=== PATIENT | female | born 1985 | race Caucasian/White ===

== ENCOUNTER 2016-08-19 12:49 | Inpatient (IN) | payer BC ==
[~2016-08-19] VITALS: Ht 170.2 cm; Wt 78.5 kg
[~2016-08-19 12:49] MED LIST: LABE100 PO; OXYC1SOL5 PO; PREN0.01 PO
[2016-09-10] MEDS: LACTATED RINGER'S 1000 ML INJ 1,000 ML IV SCH ×2 (13:04→22:32)
[2016-09-10 15:15] VITALS: RESP 18; TEMP 98
[2016-09-10 16:02] LABS: AUTOMATED NEUTROPHIL # 6.5 TH/MM3 (1.8-7.7); BASOPHIL % 0.2 % (0.0-2.0); EOSINOPHIL # 0.2 TH/MM3 (0-0.4); EOSINOPHIL % 1.9 % (0.0-4.0); HEMO FLAGS DIFF FINAL; LYMPH % 20.2 % (9.0-44.0); LYMPHOCYTE # 1.9 TH/MM3 (1.0-4.8); MEAN CELL VOLUME 90.3 FL (80.0-100.0); MEAN CORPUSCULAR HGB CONC 33.3 % (32.0-36.0); MONO % 6.9 % (0.0-8.0); NEUT % 70.8 % (16.0-70.0); PLATELET COUNT 107 TH/MM3 (150-450); RED BLOOD COUNT 4.65 MIL/MM3 (4.00-5.30); RED CELL DISTRIBUTION WIDTH 13.3 % (11.6-17.2); WHITE BLOOD COUNT 9.2 TH/MM3 (4.0-11.0)
[2016-09-10 16:15] VITALS: RESP 18
--- NOTE | 2016-09-10 16:56 | MH ---
cc: EVELIN SARMIENTO DATE OF ADMISSION 09/10/2016 DATE OF 83 ADMISSION DIAGNOSIS 1. at 38-39 weeks with decreased movement and oligohydramnios. 2. Mild PIH 3. Previous HISTORY OF PRESENT ILLNESS A 30-year-old white female para 1-0-1-1, LMP of 12/14/2015, EDC of 09/19/2016. She reported to the office today with decrease of movement, BPP was eight with NST nonreactive, and fluid just barely at six. Blood pressure is mildly elevated. She is now admitted for delivery. PAST MEDICAL HISTORY/PAST SURGICAL HISTORY for distress in 2014. 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 SOCIAL HISTORY Homemaker, . Alcohol, tobacco and drugs are none. PHYSICAL EXAMINATION GENERAL: A well-nourished well-developed white female. VITAL SIGNS: Vital signs stable. HEENT: Exam is normal. CHEST: Clear HEART: Regular rate. BREASTS: The breasts are symmetrical. ABDOMEN: Gravid. EFW is 3200 grams. Cervix is closed. Placenta is anterior. ASSESSMENT As above. PLAN She is now admitted for repeat section. The risks, benefits and complications explained and accepted. MD PARIS Hsu/ /4:00 PM /4:44 PM
[2016-09-10] MEDS ORDERED: LACTATED RINGER'S 1000 ML IV ONE (17:15)
[2016-09-10] MEDS ORDERED: LACTATED RINGER'S 1000 ML IV SCH (17:15)
[2016-09-10] MEDS ORDERED: CITRIC ACID-SODIUM CITRATE LIQ 30 ML UDC PO SCH (17:15)
[2016-09-10] MEDS ORDERED: ceFAZolin 1,000 MG/NS 100 ML IV SCH ×2 (17:15)
[2016-09-10 17:28] VITALS: BP 133/88; PULSE 75; RESP 18; TEMP 98
[2016-09-10 17:36] LABS: TOTAL BILIRUBIN ADULT 0.6 MG/DL (0.2-1.0)
[2016-09-10 17:38] LABS: INDIRECT BILIRUBIN 0.5 MG/DL (0.0-0.8)
[2016-09-10 17:56] LABS: BACTERIA, URINE FEW /hpf; BLOOD, URINE NEG (NEG); COMMENT (UR) CULTURE INDICATED; CULTURE IF INDICATED CULTURE INDICATED; GLUCOSE,URINE NEG (NEG); KETONE, URINE NEG (NEG); NITRITE,URINE NEG (NEG); PH, URINE 6.5 (5.0-8.5); SQUAMOUS EPITHELIAL CELL URINE 8 /hpf (0-5); URINE COLOR LIGHT-YELLOW (YELLW/STRAW)
[2016-09-10] MEDS ORDERED: OXYTOCIN 30 UNITS-500ML PREMIX 500 ML IV PRN (18:15)
[2016-09-10] MEDS ORDERED: PREN29TA PO (18:27)
[2016-09-10] MEDS ORDERED: MORPHINE SULFATE PF 5 MG/10 ML VIAL ONE (19:26)
[2016-09-10] MEDS ORDERED: ONDANSETRON HCL 4 MG/2 ML VIAL ONE (19:27)
[2016-09-10] MEDS ORDERED: ACETAMINOPHEN 1000 MG/100 ML VIAL IV ONE (19:27)
[2016-09-10] MEDS ORDERED: OXYTOCIN 10 UNIT/ML AMP ONE (19:27)
[2016-09-10] MEDS ORDERED: ONDANSETRON HCL 4 MG/2 ML VIAL IVP PRN (19:45)
[2016-09-10] MEDS ORDERED: ZOLPIDEM TARTRATE 5 MG TAB PO PRN (19:45)
[2016-09-10] MEDS ORDERED: MEASLES, MUMPS, RUBELLA VACCINE 0.5 ML VIAL SQ ONE (19:45)
[2016-09-10] MEDS ORDERED: KETOROLAC TROMETHAMINE 60 MG/2 ML (IM) VIAL IM PRN (19:45)
[2016-09-10] MEDS ORDERED: KETOROLAC TROMETHAMINE 30 MG/ML (IVP) VIAL IV PUSH PRN (19:45)
[2016-09-10] MEDS ORDERED: DOCUSATE SODIUM 50 MG/SENNA 8.6 MG TAB PO PRN (19:45)
[2016-09-10] MEDS ORDERED: SIMETHICONE 80 MG CHEWABLE TAB PO PRN (19:45)
[2016-09-10] MEDS ORDERED: SODIUM CHLORIDE 0.9% FLUSH 5 ML FLUSH IV PRN (19:45)
[2016-09-10] MEDS ORDERED: OXYTOCIN 30 UNITS-500ML PREMIX 500 ML IV ONE (19:45)
[2016-09-10] MEDS ORDERED: oxyCODONE/ACETAMINOPHEN 5 MG/325 MG TAB PO PRN ×2 (19:45)
[2016-09-10] MEDS ORDERED: SODIUM CHLORIDE 0.9% FLUSH 5 ML FLUSH IV SCH (21:00)
[2016-09-11] MEDS: ACETAMINOPHEN 1000 MG/100 ML VIAL IV SCH ×2 (04:32→14:05)
[2016-09-11 06:09] LABS: AUTOMATED NEUTROPHIL # 6.1 TH/MM3 (1.8-7.7); BASOPHIL % 0.3 % (0.0-2.0); EOSINOPHIL # 0.1 TH/MM3 (0-0.4); EOSINOPHIL % 1.2 % (0.0-4.0); HEMATOCRIT 31.6 % (35.0-46.0); LYMPH % 15.8 % (9.0-44.0); LYMPHOCYTE # 1.2 TH/MM3 (1.0-4.8); MEAN CELL VOLUME 89.3 FL (80.0-100.0); MEAN CORPUSCULAR HEMOGLOBIN 31.3 PG (27.0-34.0); MEAN CORPUSCULAR HGB CONC 35.1 % (32.0-36.0); MONO % 4.4 % (0.0-8.0); NEUT % 78.3 % (16.0-70.0); PLATELET COUNT 83 TH/MM3 (150-450); RED BLOOD COUNT 3.54 MIL/MM3 (4.00-5.30); RED CELL DISTRIBUTION WIDTH 13.4 % (11.6-17.2); WHITE BLOOD COUNT 7.8 TH/MM3 (4.0-11.0)
[2016-09-11 06:11] LABS: HEMO FLAGS AUTO DIFF
[2016-09-11 06:34] LABS: BICARBONATE 25.9 MEQ/L (21.0-32.0)
[2016-09-11 06:58] LABS: SCAN/DIFF AUTO DIFF CONFIRMED
[2016-09-11] MEDS: IBUPROFEN 600 MG TAB PO PRN (21:15)
[2016-09-12] MEDS: IBUPROFEN 600 MG TAB PO PRN ×2 (05:14→09:18)
[2016-09-12 07:18] LABS: AUTOMATED NEUTROPHIL # 8.4 TH/MM3 (1.8-7.7); BASOPHIL % 0.1 % (0.0-2.0); EOSINOPHIL # 0.2 TH/MM3 (0-0.4); EOSINOPHIL % 2.1 % (0.0-4.0); HEMATOCRIT 34.6 % (35.0-46.0); LYMPH % 14.4 % (9.0-44.0); LYMPHOCYTE # 1.5 TH/MM3 (1.0-4.8); MEAN CELL VOLUME 91.3 FL (80.0-100.0); MEAN CORPUSCULAR HEMOGLOBIN 30.9 PG (27.0-34.0); MEAN CORPUSCULAR HGB CONC 33.8 % (32.0-36.0); MONO % 4.6 % (0.0-8.0); NEUT % 78.8 % (16.0-70.0); PLATELET COUNT 97 TH/MM3 (150-450); RED BLOOD COUNT 3.79 MIL/MM3 (4.00-5.30); RED CELL DISTRIBUTION WIDTH 13.6 % (11.6-17.2); WHITE BLOOD COUNT 10.6 TH/MM3 (4.0-11.0)
[2016-09-12 07:21] LABS: HEMO FLAGS AUTO DIFF
[2016-09-12 08:26] LABS: PLATELET ESTIMATE SMEAR LOW (NORMAL); PLATELET MORPHOLOGY NORMAL (NORMAL); SCAN/DIFF AUTO DIFF CONFIRMED
[2016-09-12 09:00] VITALS: BP 133/89; PULSE 81; RESP 16; TEMP 98
[2016-09-12] MEDS ORDERED: DIPHTH/TETANUS/ACEL PERTUSSIS (BOOSTER) 0.5 ML VIAL/PFS IM ONE (09:00)
[2016-09-12] MEDS ORDERED: OXYC1TAB63 PO (10:28)
--- NOTE | 2016-09-12 10:29 | HHI.DCPOC ---
Discharge Care Plan Report Symptoms to Your Doctor -Temperature above 100.5 degrees -Redness, of incision or excessive or foul smelling drainage -Unusual pain or calf pain -Increased vaginal bleeding -Painful or difficulty urinating -Feelings of extreme sadness or anxiety after 2 weeks Goals to Promote Your Health * To prevent worsening of your condition and complications * To maintain your health at the optimal level Directions to Meet Your Goals Take your medications as prescribed Follow your dietary instruction Follow activity as directed Ensure plenty of rest for recovery Drink fluids for hydration Keep your appointments as scheduled Take your immunizations and boosters as scheduled If your symptoms worsen call your PCP, if no PCP go to Urgent Care Center or Emergency Room Smoking is Dangerous to Your Health. Avoid second hand smoke Call the 24-hour crisis hotline for domestic abuse at Enoch Martinez MD Sep 12, 2016 10:29
--- NOTE | 2016-09-12 16:57 | MP ---
cc: EVELIN SARMIENTO DATE OF SURGERY: 09/12/2016. PREOPERATIVE DIAGNOSIS: 1. at 38 to 39 weeks. 2. Oligohydramnios. 3. Decreased movement. 4. Previous . POSTOPERATIVE DIAGNOSIS: 1. at 38 to 39 weeks. 2. Oligohydramnios. 3. Decreased movement. 4. Previous . 5. Delivered. OPERATIVE PROCEDURE PERFORMED: Repeat low transverse section. SURGEON: Evelin Sarmiento MD. BRAZER REPAIR AND SALVAGE: YOLIS Gonzalez. ANESTHESIA: Spinal. ESTIMATED BLOOD LOSS: About 600 cc. FLUIDS: 1.6 liters of crystalloid. DESCRIPTION OF THE PROCEDURE IN DETAIL / OBJECTIVE FINDINGS: Following the induction of adequate spinal anesthesia, the patient was prepped and draped supine on the operating table in the dorsal lithotomy position in the usual sterile fashion with the bladder being drained via Jacob catheterization. The abdomen was opened through a Pfannenstiel's incision using a knife to cut down through skin to the fascia. The fascia was opened transversely and stripped the muscles. The rectus muscle was split in the midline and the peritoneum opened sharply without incident. The bladder flap was taken down sharply and retracted inferiorly with a Diego blade. The lower uterine segment was incised transversely with a knife and extended by blunt dissection. There was clear fluid. The baby was in the OP position and was gently rotated to apply the vacuum to the occiput and lift the baby through the abdominal wound. The mouth was suctioned, the cord clamped and cut and the baby passed to the awaiting team, a viable vigorous female with Apgars 9 and 9 and weight 6 pounds, 8 ounces. Cord blood was taken for typing and donation. The uterine cavity was cleaned with laps. The uterus was exteriorized and closed in two layers using running suture, first with a running locking stitch of Vicryl and the second with a running imbricating stitch of Vicryl. Area of bleeding along the suture line was controlled with sutures of 2-0 chromic. Posterior inspection was normal. Sutures were normal. The uterus was replaced in the abdominal cavity. Inspection was performed and no bleeding was evident. The bladder flap was closed with a running stitch of 3-0 Vicryl. All laps were removed. Counts were correct. The anterior peritoneum was closed with a running stitch of 2-0 Vicryl, the fascia with a running locking stitch of #0 Vicryl corner to midline and tied and the subcutaneous with running 3-0 Vicryl and the skin with running subcuticular 3-0 Monocryl. Dermabond was applied. All counts were correct. The patient was awakened and taken to the recovery room in good condition. MD PARIS Hsu/NITIN /8:36 PM /4:50 PM
--- NOTE | 2016-09-16 07:02 | MD ---
cc: EVELIN SARMIENTO M.D. ADMISSION DATE: 09/10/2016 DISCHARGE DATE: 09/12/2016 ADMISSION DIAGNOSIS 1. at 38-39 weeks. 2. Oligohydramnios 3. Decreased movement. 4. Mild PIH 5. Previous . DISCHARGE DIAGNOSIS 1. at 38-39 weeks. 2. Oligohydramnios 3. Decreased movement. 4. Mild PIH 5. Previous . 6. Delivered HISTORY OF PRESENT ILLNESS The patient is a 30-year-old white female para 1-0-1-1, LMP of 12/14/2015, EDC of 09/19/2016. She had presented to the office on the day of admission with decreased movement. Biophysical profile showed a newly reactive NST, decreased CHRISTIANO of 6 and she had mildly increased blood pressure. She was admitted for repeat section, underwent a repeat low transverse section on the evening of 09/10/2016 with delivery of a viable vigorous female 's were 9 and 9, weight 6 pounds 8 ounces. The baby was named Hodan and she was breast-feeding. did well, discharged home in excellent condition on 09/12/2016. She had miles ITP pre-delivery. Her predelivery hematocrit was normal platelets 107, postdelivery platelet count was 97. Blood type was positive. She was advised NPV, light activity, no driving. Return to see me in one week. She is to call for abnormal pain, bleeding, temperature, signs infection, or depression. MD PARIS Hsu/ANITRA /10:34 AM /6:55 AM
== END 2016-09-12 15:48 | disposition home or self-care (01) | DRG 765 ==
LOC: H2EB 09-10 14:50 → H1EA 09-10 22:02
PROVIDERS: ADMIT Obstetrics & Gynecology; ATTEND Obstetrics & Gynecology
PROC: 10D00Z1 Extraction of Products of Conception, Low, Open Approach (ICD-10-PCS; principal; 2016-09-10)
DX: O34.211 Maternal care for low transverse scar from previous cesarean delivery (principal); D69.3 Immune thrombocytopenic purpura; O99.12 Other diseases of the blood and blood-forming organs and certain disorders involving the immune mechanism complicating childbirth; O13.4 Gestational [pregnancy-induced] hypertension without significant proteinuria, complicating childbirth; O41.03X0 Oligohydramnios, third trimester, not applicable or unspecified; O36.8130 Decreased fetal movements, third trimester, not applicable or unspecified; Z37.0 Single live birth; Z3A.38 38 weeks gestation of pregnancy
CPT/HCPCS: 76816; 76818; 80048; 80076; 81001; 85025; 86850; 86900; 86901; 87086; J0131; J0690; J2274; J2405; J2590; J7120

== ENCOUNTER 2017-11-22 01:12 | Observation (INO) ==
[2017-11-22 02:19] LABS: Baso # (Auto) 0.1 th/mm3 (0.0-0.2); Baso % (Auto) 1.2 % (0.0-2.0); Eos # (Auto) 0.2 th/mm3 (0.0-0.4); Eos % (Auto) 2.8 % (0.0-4.0); Hematocrit 42.6 % (35.0-46.0); Hemoglobin 14.4 gm/dL (11.6-15.3); Lymph # (Auto) 2.5 th/mm3 (1.0-4.8); Lymph % (Auto) 34.2 % (9.0-44.0); Mean Corpuscular HGB Conc 33.9 % (32.0-36.0); Mean Corpuscular Hemoglobin 32.6 pg (27.0-34.0); Mean Corpuscular Volume 96.2 fL (80.0-100.0); Mono # (Auto) 0.3 th/mm3 (0.0-0.9); Mono % (Auto) 4.6 % (0.0-8.0); Neut # (Auto) 4.2 th/mm3 (1.8-7.7); Neut % (Auto) 57.2 % (16.0-70.0); Platelet Count 117 th/mm3 (150-450); Red Blood Count 4.43 mil/mm3 (4.00-5.30); Red Cell Distribution Width 11.6 % (11.6-17.2); White Blood Count 7.3 th/mm3 (4.0-11.0)
[2017-11-22 02:24] LABS: Bilirubin,Urine Negative (Negative); Clarity,Urine Clear (Clear); Color,Urine Yellow (Yellw/Straw); Glucose,Urine (UA) Negative (Negative); Leukocyte Esterase,Urine Negative (Negative); Nitrite,Urine Negative (Negative); Urobilinogen,Urine 0.2 mg/dL (Less than 2)
[2017-11-22 02:26] LABS: Chloride 108 meq/L (98-107); Potassium 3.5 meq/L (3.5-5.1); Sodium 141 meq/L (136-145)
[2017-11-22 02:29] LABS: Albumin 3.9 g/dL (3.4-5.0); Anion Gap 8 meq/L (5-15); Blood Urea Nitrogen 17 mg/dL (7-18); Calcium 8.2 mg/dL (8.5-10.1); Carbon Dioxide 24.6 meq/L (21.0-32.0); Glucose,Random 97 mg/dL (74-106); Lipase 202 U/L (73-393)
[2017-11-22 02:32] LABS: Alanine Aminotransferase 16 U/L (10-53); Aspartate Aminotransferase 14 U/L (15-37); Glomerular Filtration Rate 81 mL/min (>89)
[2017-11-22 02:34] LABS: Total Protein 6.6 g/dL (6.4-8.2)
[2017-11-22 02:35] LABS: RBC,Urine 0-3 /hpf (0-3); Squamous Epithelial Cell,Urine 0-5 /hpf (0-5); WBC,Urine 0-5 /hpf (0-5)
[2017-11-22 02:35] LABS: Alkaline Phosphatase 49 U/L (45-117)
--- NOTE | 2017-11-22 02:48 | ED ---
HPI General Chief Complaint: Abdominal Pain Stated Complaint: Right lower abdomen pain [id number] Time Seen by Provider: 11/22/17 02:05 Related Data Allergies Allergy/AdvReac Type Severity Reaction Status Date / Time No Known Allergies Allergy Unverified 11/22/17 01:50 Review of Systems ROS: all other systems reviewed are negative (Patient we will Approximately an hour prior to arrival with significant pain to the right lower quadrant.) [facility] Medical History Medical History Patient denies medical problems (Acute) Surgical History Surgical History No history of previous surgery (Acute) Social History Social History Substance History: No History of Abuse Second Hand Smoke Exposure: No Smoking Status: Never smoker How Often Do You Have a Drink Containing Alcohol: 2 to 4 times a month Recent Travel in [facility] within the Last 8 Weeks: No Recent Out of Country Travel within the Last 8 Weeks: No Immunization History Tetanus Immunization: >5 Years Hx Influenza Vaccine This Season: No Course Initial Documented Vital Signs Temperature 97.7 F 11/22/17 01:21 Pulse Rate 84 11/22/17 01:21 Respiratory Rate 16 11/22/17 01:21 Blood Pressure 119/70 11/22/17 01:21 Pulse Oximetry 100 11/22/17 01:21 Last Documented Vital Signs Temperature 97.7 F 11/22/17 01:21 Pulse Rate 82 11/22/17 05:56 Respiratory Rate 20 11/22/17 05:56 Blood Pressure 121/75 11/22/17 05:56 Pulse Oximetry 98 11/22/17 05:56 Medical Decision Making Lab Data Result diagrams: 11/22/17 02:12 11/22/17 02:12 Lab Results 11/22/17 11/22/17 11/22/17 Range/Units 02:12 02:12 02:22 CBC w Diff Auto diff final WBC 7.3 (4.0-11.0) th/mm3 RBC 4.43 (4.00-5.30) mil/mm3 Hgb 14.4 (11.6-15.3) gm/dL Hct 42.6 (35.0-46.0) % MCV 96.2 (80.0-100.0) fL MCH 32.6 (27.0-34.0) pg MCHC 33.9 (32.0-36.0) % RDW 11.6 (11.6-17.2) % Plt Count 117 L (150-450) th/mm3 MPV 10.0 (7.0-11.0) fL Neut % (Auto) 57.2 (16.0-70.0) % Lymph % (Auto) 34.2 (9.0-44.0) % Tyler % (Auto) 4.6 (0.0-8.0) % Eos % (Auto) 2.8 (0.0-4.0) % Baso % (Auto) 1.2 (0.0-2.0) % Neut # (Auto) 4.2 (1.8-7.7) th/mm3 Lymph # (Auto) 2.5 (1.0-4.8) th/mm3 Tyler # (Auto) 0.3 (0.0-0.9) th/mm3 Eos # (Auto) 0.2 (0.0-0.4) th/mm3 Baso # (Auto) 0.1 (0.0-0.2) th/mm3 WBC Differential . Differential Comment . Sodium 141 (136-145) meq/L Potassium 3.5 (3.5-5.1) meq/L Chloride 108 H (98-107) meq/L Carbon Dioxide 24.6 (21.0-32.0) meq/L Anion Gap 8 (5-15) meq/L BUN 17 (7-18) mg/dL Creatinine 0.82 (0.50-1.00) mg/dL Estimated GFR 81 L (>89) mL/min Random Glucose 97 (74-106) mg/dL Calcium 8.2 L (8.5-10.1) mg/dL Total Bilirubin 0.7 (0.2-1.0) mg/dL AST 14 L (15-37) U/L ALT 16 (10-53) U/L Alkaline Phosphatase 49 (45-117) U/L Total Protein 6.6 (6.4-8.2) g/dL Albumin 3.9 (3.4-5.0) g/dL Lipase 202 (73-393) U/L Urine Color Yellow (Yellw/Straw) Urine Clarity Clear (Clear) Urine pH 6.0 (5.0-8.5) Ur Specific [place] 1.010 (1.002-1.035) Urine Protein Negative (Neg-Trace) mg/dL Urine Glucose (UA) Negative (Negative) mg/dL Urine Ketones Negative (Negative) mg/dL Urine Occult Blood Negative (Negative) Urine Nitrate Negative (Negative) Urine Bilirubin Negative (Negative) Urine Urobilinogen 0.2 (Less than 2) mg/dL Ur Leukocyte Esterase Negative (Negative) Urine RBC 0-3 (0-3) /hpf Urine WBC 0-5 (0-5) /hpf Ur Squamous Epith Cells 0-5 (0-5) /hpf Micro UA Comment Culture not ind Urine Culture Comments Culture not ind Imaging Data Radiologist's impression: Abdomen/Pelvis CT 11/22/17 02:49 CONCLUSION: 1. Cystic structure right adnexa measures 4 cm could be ovarian cyst. 2. Appendix not clearly seen. No inflammatory changes right lower quadrant. 3. Punctate nonobstructing left renal calculus. Abdomen/Pelvis CT 11/22/17 04:12 CONCLUSION: 1. Complex cystic lesion right adnexa measuring up to 5 cm. Pelvic sonogram recommended for further characterization. 2. There appears to be wall thickening involving the transverse and descending colon. Could be colitis. 3. Abdominal ascites. Discharge Plan Discharge Disposition Patient Disposition: 30 Still Patient Physicians Team ED Provider: Osmany Enciso Primary Care Provider: Primary Care Physici,No Discharge Interventions Interventions: Vital Signs Last Done: 11/22/17 07:00 Status ED Status: Admitted Patient
[2017-11-22] MEDS ORDERED: Ketorolac Inj 30 MG/ML (IVP) Vial IV.PUSH ONE ×3 (02:49→12:00)
--- NOTE | 2017-11-22 04:03 | CT ---
EXAM DATE: 11/22/2017 3:15 AM EDT AGE/SEX: 31 years / Female INDICATIONS: Right lower quadrant abdominal pain. CLINICAL DATA: This is the patient's initial encounter. Patient reports that signs and symptoms have been present for 1 day and indicates a pain score of 8/10. MEDICAL/SURGICAL HISTORY: None. None. RADIATION DOSE: 7.17 CTDI (mGy) COMPARISON: No prior exams available for comparison. TECHNIQUE: Multiple contiguous axial images were obtained through the abdomen. Images were obtained using multiple row detector helical technique. Using automated exposure control and adjustment of the mA and/or kV according to patient size, radiation dose was kept as low as reasonably achievable to o btain optimal diagnostic quality images. DICOM format image data is available electronically for rev iew and comparison. FINDINGS: Lower Lungs: The visualized lower lungs are clear. Liver: The liver has a homogeneous density without space-occupying lesion. There is no dilation of th e biliary tree. Spleen: Homogeneous density without enlargement. Pancreas: Unremarkable without mass or calcification. Kidneys: Normal in size and shape. No evidence of mass or hydronephrosis. Punctate calculus left mid kidney measures 2 mm. Adrenal Glands: Unremarkable. Aorta: The aorta and proximal iliac vessels are grossly unremarkable without aneurysmal dilation. Bowel/Mesentery: The bowel loops are grossly unremarkable. The cecum and sigmoid colon have a normal configuration. Appendix not clearly seen. Abdominal Wall: Intact. Retroperitoneum: No evidence of adenopathy in the retrocrural, para-aortic, or deep pelvic regions. Bladder: Contours are smooth. Reproductive Organs: 4 cm is a structure right adnexa. Small amount of pelvic free fluid. Inguinal: The inguinal region is unremarkable without evidence of adenopathy. Bony Structures: Unremarkable. CONCLUSION: 1. Cystic structure right adnexa measures 4 cm could be ovarian cyst. 2. Appendix not clearly seen. No inflammatory changes right lower quadrant. 3. Punctate nonobstructing left renal calculus. Electronically signed by: Raymon Nj MD 11/22/2017 4:01 AM EDT
[2017-11-22] MEDS ORDERED: Diatrizoate Meglum/Diatrizoate Sod Liq 9 ML UDC ONE (04:43)
--- NOTE | 2017-11-22 06:07 | CT ---
EXAM DATE: 11/22/2017 5:58 AM EDT AGE/SEX: 31 years / Female INDICATIONS: Right lower abdominal pain. CLINICAL DATA: This is the patient's initial encounter. Patient reports that signs and symptoms have been present for 1 day and indicates a pain score of 7/10. MEDICAL/SURGICAL HISTORY: None. None. ORAL CONTRAST: Prescribed oral contrast ingested. RADIATION DOSE: 6.28 CTDI (mGy) COMPARISON: [facility], CT ABDOMEN & PELVIS W/O CONTRAST, 11/22/2017. . TECHNIQUE: Multiple contiguous axial images were obtained through the abdomen and pelvis following b olus infusion of 80 ml Omnipaque 350 (iohexol) nonionic water-soluble contrast as a single exam dos e. Prescribed oral contrast ingested. Using automated exposure control and adjustment of the mA and/ or kV according to patient size, radiation dose was kept as low as reasonably achievable to obtain op timal diagnostic quality images. DICOM format image data is available electronically for review and comparison. FINDINGS: Lower Lungs: The visualized lower lungs are clear. Liver: The liver has a homogeneous density without space-occupying lesion. There is no dilation of th e biliary tree. Spleen: Homogeneous density without enlargement. Pancreas: Unremarkable without mass or calcification. Kidneys: Normal in size and shape. No evidence of mass or hydronephrosis. Adrenal Glands: Unremarkable. Aorta: The aorta and proximal iliac vessels are grossly unremarkable without aneurysmal dilation. Bowel/Mesentery: There appears to be wall thickening involving the transverse and descending colon. Small amount of abdominal ascites. Appendix not seen. Abdominal Wall: Intact. Retroperitoneum: No evidence of adenopathy in the retrocrural, para-aortic, or deep pelvic regions. Bladder: Contours are smooth. Reproductive Organs: Complex cystic lesion right adnexa measuring up to 5 cm. Pelvic free fluid. Ingu inal: The inguinal region is unremarkable without evidence of adenopathy. Bony Structures: Unremarkable. CONCLUSION: 1. Complex cystic lesion right adnexa measuring up to 5 cm. Pelvic sonogram recommended for further characterization. 2. There appears to be wall thickening involving the transverse and descending colon. Could be colit is. 3. Abdominal ascites. Electronically signed by: Raymon Nj MD 11/22/2017 6:06 AM EDT
[2017-11-22] MEDS ORDERED: Morphine Sulfate Inj 2 MG/ML Vial IV.PUSH ONE (06:47)
[2017-11-22] MEDS ORDERED: Sod Chloride 0.9% Inj 1,000 ML IV.CONT SCH (07:15)
[2017-11-22 07:26] LABS: Baso % (Auto) 0.3 % (0.0-2.0); Eos % (Auto) 0.1 % (0.0-4.0); Hematocrit 40.1 % (35.0-46.0); Hemoglobin 13.5 gm/dL (11.6-15.3); Lymph # (Auto) 1.3 th/mm3 (1.0-4.8); Lymph % (Auto) 8.8 % (9.0-44.0); Mean Corpuscular HGB Conc 33.8 % (32.0-36.0); Mean Corpuscular Hemoglobin 32.4 pg (27.0-34.0); Mean Corpuscular Volume 96.1 fL (80.0-100.0); Mono # (Auto) 0.5 th/mm3 (0.0-0.9); Mono % (Auto) 3.6 % (0.0-8.0); Neut # (Auto) 12.8 th/mm3 (1.8-7.7); Neut % (Auto) 87.2 % (16.0-70.0); Platelet Count 145 th/mm3 (150-450); Red Blood Count 4.18 mil/mm3 (4.00-5.30); Red Cell Distribution Width 11.6 % (11.6-17.2); White Blood Count 14.6 th/mm3 (4.0-11.0)
[2017-11-22 07:28] LABS: Bilirubin,Urine Negative (Negative); Clarity,Urine Clear (Clear); Glucose,Urine (UA) Negative (Negative); Leukocyte Esterase,Urine Negative (Negative); Nitrite,Urine Negative (Negative); PH,Urine 7.5 (5.0-8.5); Urobilinogen,Urine 0.2 mg/dL (Less than 2)
[2017-11-22 07:32] LABS: Color,Urine Straw (Yellw/Straw)
[2017-11-22 07:35] LABS: Squamous Epithelial Cell,Urine 0-5 /hpf (0-5)
--- NOTE | 2017-11-22 09:35 | P.HP ---
History of Present Illness Primary Care Physician: No Primary Care Physician Chief Complaint: Abdominal pain History of Present Illness: 31-year-old female with no chronic medical illnesses who presented to the emergency department because acute onset of right lower quadrant abdominal pain. Patient indicates that she is in normal state of health until 1:00 this morning when she woke up with severe abdominal pain in the right lower quadrant. It did not improve so she came to emergency department for evaluation. Initial evaluation was performed with laboratory studies which was unremarkable, CT scan indicated a 4 cm ovarian cyst. Appendix was not visualized at that time. The pain is progressively got worse with exam findings of rebound tenderness. Repeat laboratory studies were done which did indicate a worsening of her white count. Repeat CT scan was also performed which now indicates a 5 cm ovarian cyst, however still unable to appreciate the appendix. Possible some mild developing colitis. Patient's pain has not improved she has significant findings of Rovsing sign, McBurney point tenderness , rebound tenderness. Patient was admitted the hospital, general surgery consultation. Patient denies any nausea, vomiting, fever, diarrhea, constipation, melena, hematochezia. - Diagnosis (1) Abdominal pain (2) Ovarian cyst Review of Systems All other systems reviewed negative except as stated in HPI Gastrointestinal: Reports abdominal pain PMFSH - History History Provided By: Patient - Medical History Medical History: Medical History (Last Reviewed 11/22/17 @ 09:28 by MARCI Floyd) Patient denies medical problems - Surgical History Surgical History: Surgical History (Last Reviewed 11/22/17 @ 09:28 by MARCI Floyd) No history of previous surgery - Family History Family History: Family History (Last Updated 11/22/17 @ 09:29 by MARCI Floyd) Father History of bone cancer - Tobacco History Second Hand Smoke Exposure: No Smoking Status: Never smoker - Alcohol History How Often Do You Have a Drink Containing Alcohol: 2 to 3 times a week - Substance Use History Substance History: No History of Abuse - Travel History Recent Travel in the [place] Within the Last 8 Weeks: No Recent Travel Out of the Country Within the Last 8 Weeks: No - Immunization History Tetanus Immunization: >5 Years Hx Influenza Vaccine This Season: No Medications and Allergies Active Medications: Active Medications Sodium Chloride (Ns Inj) 1,000 mls @ 100 mls/hr IV.CONT .Q10H JULIETA Last Admin: 11/22/17 07:28 Dose: 100 mls/hr Morphine Sulfate (Morphine Inj) 2 mg IV.PUSH Q3H PRN PRN Reason: pain 1 to 10 Sodium Chloride (Ns Flush) 2 ml IV.FLUSH PRN PRN PRN Reason: FLUSH AFTER USING IV ACCESS Last Admin: 11/22/17 03:00 Dose: 2 ml Allergies Allergy/AdvReac Type Severity Reaction Status Date / Time No Known Allergies Allergy Unverified 11/22/17 01:50 Exam Vital signs: Vital Signs 11/22/17 01:21 11/22/17 02:23 11/22/17 05:56 Temperature 97.7 F Pulse Rate 84 82 82 Respiratory Rate 16 16 20 Blood Pressure 119/70 125/74 121/75 Pulse Oximetry 100 98 98 11/22/17 06:58 11/22/17 07:00 11/22/17 08:46 Temperature 98.0 F Pulse Rate 93 H 102 H 87 Respiratory Rate 20 14 18 Blood Pressure 120/87 145/90 H 127/86 Pulse Oximetry 100 100 Intake & Output 11/21/17 11/22/17 11/22/17 18:59 06:59 18:59 Weight 62.9 kg 62.9 kg Other: Date of Last Bowel Movement 11/22/17 Weight On Admission 62.9 kg Narrative: GENERAL: Well-developed, well-nourished, in no acute distress. alert and orientated HEENT: Head is normocephalic without any lesions or masses noted. Facial features are symmetric. Eyes: Pupils equal round reactive to light. Extraocular muscles are intact. Conjunctivae were clear. Oropharyngeal: Pharynx without any erythema edema. Tongue is midline without deviation. Buccal mucosa is moist without any masses or lesions NECK: Supple without any masses. Trachea midline no deviation. No JVD, no bruits are appreciated CARDIAC: Regular rhythm, regular rate. S1/S2 are heard. No murmurs gallops or rubs. LUNGS: Clear to auscultation bilaterally. No wheeze, rhonchi or rales. No use of accessory muscles on inspiration or expiration. ABDOMEN: Soft, McBurney point tenderness, positive Rovsing sign, positive guarding, positive rebound. Nondistended. Bowel sounds heard in all 4 quadrants. No organomegaly or masses. EXTREMITIES: No edema, pulses are equal bilaterally. No cyanosis or clubbing NEUROLOGY: Mood and affect appear appropriate. Cranial nerves II through XII grossly intact. Muscle strength 5/5 in upper and lower extremities bilaterally. Deep tendon reflexes are 2+ in upper and lower extremities bilaterally. Results - Labs CBC & Chem 7: 11/22/17 07:20 11/22/17 02:12 Labs: Laboratory Results - last 24 hr 11/22/17 11/22/17 11/22/17 02:12 02:12 02:22 CBC w Diff Auto diff final WBC 7.3 RBC 4.43 Hgb 14.4 Hct 42.6 MCV 96.2 MCH 32.6 MCHC 33.9 RDW 11.6 Plt Count 117 L MPV 10.0 Neut % (Auto) 57.2 Lymph % (Auto) 34.2 [place] % (Auto) 4.6 Eos % (Auto) 2.8 Baso % (Auto) 1.2 Neut # (Auto) 4.2 Lymph # (Auto) 2.5 [place] # (Auto) 0.3 Eos # (Auto) 0.2 Baso # (Auto) 0.1 WBC Differential . Differential Comment . Sodium 141 Potassium 3.5 Chloride 108 H Carbon Dioxide 24.6 Anion Gap 8 BUN 17 Creatinine 0.82 Estimated GFR 81 L Random Glucose 97 Calcium 8.2 L Total Bilirubin 0.7 AST 14 L ALT 16 Alkaline Phosphatase 49 Total Protein 6.6 Albumin 3.9 Lipase 202 Ur Collection Type Urine Color Yellow Urine Clarity Clear Urine pH 6.0 Ur Specific [place] 1.010 Urine Protein Negative Urine Glucose (UA) Negative Urine Ketones Negative Urine Occult Blood Negative Urine Nitrate Negative Urine Bilirubin Negative Urine Urobilinogen 0.2 Ur Leukocyte Esterase Negative Urine RBC 0-3 Urine WBC 0-5 Ur Squamous Epith Cells 0-5 Micro UA Comment Culture not ind Urine Culture Comments Culture not ind 11/22/17 11/22/17 07:20 07:20 CBC w Diff Auto diff final WBC 14.6 H D RBC 4.18 Hgb 13.5 Hct 40.1 MCV 96.1 MCH 32.4 MCHC 33.8 RDW 11.6 Plt Count 145 L MPV 10.0 Neut % (Auto) 87.2 H Lymph % (Auto) 8.8 L [place] % (Auto) 3.6 Eos % (Auto) 0.1 Baso % (Auto) 0.3 Neut # (Auto) 12.8 H Lymph # (Auto) 1.3 [place] # (Auto) 0.5 Eos # (Auto) 0.0 Baso # (Auto) 0.0 WBC Differential . Differential Comment . Sodium Potassium Chloride Carbon Dioxide Anion Gap BUN Creatinine Estimated GFR Random Glucose Calcium Total Bilirubin AST ALT Alkaline Phosphatase Total Protein Albumin Lipase Ur Collection Type Clean catch Urine Color Straw Urine Clarity Clear Urine pH 7.5 Ur Specific [place] 1.010 Urine Protein Negative Urine Glucose (UA) Negative Urine Ketones Negative Urine Occult Blood Negative Urine Nitrate Negative Urine Bilirubin Negative Urine Urobilinogen 0.2 Ur Leukocyte Esterase Negative Urine RBC Urine WBC Ur Squamous Epith Cells 0-5 Micro UA Comment Culture not ind Urine Culture Comments Culture not ind - Imaging Impressions Abdomen/Pelvis CT 11/22/17 02:49 CONCLUSION: 1. Cystic structure right adnexa measures 4 cm could be ovarian cyst. 2. Appendix not clearly seen. No inflammatory changes right lower quadrant. 3. Punctate nonobstructing left renal calculus. Abdomen/Pelvis CT 11/22/17 04:12 CONCLUSION: 1. Complex cystic lesion right adnexa measuring up to 5 cm. Pelvic sonogram recommended for further characterization. 2. There appears to be wall thickening involving the transverse and descending colon. Could be colitis. 3. Abdominal ascites. Caprini VTE Risk Assessment Caprini VTE Risk Assessment: No/Low Risk (score <= 1) Caprini Risk Assessment Model: Point Value = 1 Point Value = 2 Point Value = 3 Point Value = 5 Age 41-60 Minor surgery BMI > 25 kg/m2 Swollen legs Varicose veins or History of unexplained or recurrent spontaneous Oral contraceptives or hormone replacement Sepsis (< 1 month) Serious lung disease, including pneumonia (< 1 month) Abnormal pulmonary function Acute myocardial infarction Congestive heart failure (< 1 month) History of inflammatory bowel disease Medical patient at bed rest Age 61-74 Arthroscopic surgery Major open surgery (> 45 min) Laparoscopic surgery (> 45 min) Malignancy Confined to bed (> 72 hours) Immobilizing plaster cast Central venous access Age >= 75 History of VTE Family history of VTE Factor V Leiden Prothrombin [id number] Lupus anticoagulant Anticardiolipin antibodies Elevated serum homocysteine Heparin-induced thrombocytopenia Other congenital or acquired thrombophilia Stroke (< 1 month) Elective arthroplasty Hip, pelvis, or leg fracture Acute spinal cord injury (< 1 month) Prophylaxis Regimen: Total Risk Factor Score Risk Level Prophylaxis Regimen 0-1 Low Early ambulation 2 Moderate Order ONE of the following: *Sequential Compression Device (SCD) *Heparin 5000 units SQ BID 3-4 Higher Order ONE of the following medications: *Heparin 5000 units SQ TID *Enoxaparin/Lovenox 40 mg SQ daily (WT < 150 kg, CrCl > 30 mL/min) *Enoxaparin/Lovenox 30 mg SQ daily (WT < 150 kg, CrCl > 10-29 mL/min) *Enoxaparin/Lovenox 30 mg SQ BID (WT < 150 kg, CrCl > 30 mL/min) AND/OR *Sequential Compression Device (SCD) 5 or more Highest Order ONE of the following medications: *Heparin 5000 units SQ TID (Preferred with Epidurals) *Enoxaparin/Lovenox 40 mg SQ daily (WT < 150 kg, CrCl > 30 mL/min) *Enoxaparin/Lovenox 30 mg SQ daily (WT < 150 kg, CrCl > 10-29 mL/min) *Enoxaparin/Lovenox 30 mg SQ BID (WT < 150 kg, CrCl > 30 mL/min) AND *Sequential Compression Device (SCD) Assessment and Plan - Assessment (1) Abdominal pain Code(s): R10.9 - Unspecified abdominal pain Status: Acute (2) Ovarian cyst Code(s): N83.209 - Unspecified ovarian cyst, unspecified side Status: Acute - Plan Abdominal pain -Difficult to ascertain at this time whether her abdominal pain is secondary to acute appendicitis versus ovarian cyst -CT scans do demonstrate an ovarian cyst, however they do not indicate any abnormality or visualization of the appendix. Recommending ultrasound for further delineation -Ultrasound of the pelvic area does show actual increase in size 8.1 cm of the ovarian mass. -Contacted patient's APPRAISER AUDITOR Dr. Martinez, he indicated that he does not see patients in [place] or do surgery done here. He recommending contacting these [employer] concrete mixer. I did contact Dr. Denis notified her. She was planning on scheduling surgery in [place]. Both GYNs agreed that this could possibly be ovarian torsion. Dr. Martinez did call me back in requested that I transfer the patient to the [facility] so he can do the surgery this afternoon. All this was discussed with the patient and family. Upon agreement with family and medical staff. Patient will be transferred to the [facility] for surgical intervention done by Dr. Martinez. -Continue pain control -Start Zosyn 3.375 mg every 6 hours -General surgery consultation canceled Leukocytosis -Worsening, in 5 hours her WBC count has gone from 7300 to14,600 -We will start antibiotics as above DVT prevention -Sequential compression devices, avoid chemical prophylaxis secondary to possible surgical intervention -Start subcutaneous heparin once cleared by surgery
[2017-11-22] MEDS: Piperacil/Tazo 3.375 GM Premix 50 ML IV.SIG SCH ×2 (11:02→20:14)
[2017-11-22] MEDS: Morphine Sulfate Inj 2 MG/ML Vial IV.PUSH PRN ×2 (11:41→14:36)
--- NOTE | 2017-11-22 11:54 | US ---
EXAM DATE: 11/22/2017 11:17 AM EDT AGE/SEX: 31 years / Female INDICATIONS: Right lower quadrant abdominal pain. Ovarian cyst. CLINICAL DATA: This is the patient's initial encounter. Patient reports that signs and symptoms have been present for 1 day and indicates a pain score of 6/10. MEDICAL/SURGICAL HISTORY: None. None. COMPARISON: [facility], CT ABDOMEN & PELVIS W CONTRAST, 11/22/2017. . MEASUREMENTS: Uterus:__8.2 x 4.2 x 4.9 cm Endometrial Stripe:__13 mm Right Ovary:__ 3.3 x 2.4 x 3.1 cm Left Ovary:__ 3.0 x 2.0 x 2.1 cm FINDINGS: Uterus: The myometrium has homogeneous echotexture without mass. Endometrial Stripe: The endometrial stripe displays homogeneous echotexture. Right Ovary: There is a large heterogeneous isoechoic right adnexal mass without significant vascula rity measuring 8.1 x 7.7 x 6.9 cm. There is an adjacent isoechoic structure likely reflecting the rig ht ovary. Blood flow is demonstrated in the right ovary. Left Ovary: Ovary contains no mass or significant cystic lesion. Fluid: No free fluid. Other: None. CONCLUSION: 1. Large complex right adnexal mass measuring up to 8.1 cm. It is uncertain whether this is a large exophytic ovarian mass or a paraovarian mass. This lesion does not have typical sonographic features for endometrioma or teratoma. Cannot exclude tubo-ovarian abscess in the appropriate clinical setting . Differential considerations otherwise include fibrothecoma versus pedunculated uterine leiomyoma am ongst other etiologies. 2. Prominent but homogeneous endometrial stripe likely related to patient's phase of menstrual cycle . Electronically signed by: Michael Rodriguez MD 11/22/2017 11:53 AM EDT
[2017-11-22] MEDS ORDERED: Lidocaine PF 1% Inj 5 ML Syringe INFILTRATN ONE (12:00)
--- NOTE | 2017-11-22 13:37 | US ---
EXAM DATE: 11/22/2017 1:11 PM EDT AGE/SEX: 31 years / Female INDICATIONS: Abdominal pain. CLINICAL DATA: This is the patient's initial encounter. Patient reports that signs and symptoms have been present for 1 week and indicates a pain score of 2/10. MEDICAL/SURGICAL HISTORY: . Abdominal pain. None. COMPARISON: . FINDINGS: Masses: None Fluid Collections: Abdominal ascites. Other: None. Targeted images of the appendix were obtained. Appendiceal diameter is normal measuring upwards of 6 mm. CONCLUSION: 1. Abdominal ascites. 2. Otherwise negative. Vermiform appendix is identified and is sonographically normal. Electronically signed by: Juanito Willingham MD 11/22/2017 1:35 PM EDT
[2017-11-22] MEDS ORDERED: Chlorhexidine Gluconate 2% 1 Pack (2 Cloths) TOPICAL SCH (17:00)
[2017-11-22] MEDS ORDERED: Sodium Chlor 0.9% Inj 500 ML IV.SIG SCH (17:00)
[2017-11-22] MEDS ORDERED: Metoprolol Tartrate 25 MG Tablet PO SCH (17:00)
[2017-11-22] MEDS ORDERED: Dexmedetomidine Inj 200 MCG/2 ML Vial ONE (17:18)
[2017-11-22] MEDS ORDERED: Ketamine Inj 500 MG/10 ML Vial ONE (17:18)
[2017-11-22] MEDS ORDERED: Bupivacaine/Epinephrine Inj 0.25% 50 ML Vial ONE (17:50)
[2017-11-22] MEDS ORDERED: ceFAZolin 2 GM Premix Inj 2 GM/50 ML PIGGYBACK IV.SIG ONE (17:52)
[2017-11-22] MEDS ORDERED: Sugammadex Inj 200 MG/2 ML Vial IV.PUSH ONE (18:27)
[2017-11-22] MEDS ORDERED: Ketorolac Inj 30 MG/ML (IVP) Vial IV.PUSH PRN (18:38)
[2017-11-22] MEDS ORDERED: fentaNYL Citrate Inj 100 MCG/2 ML Ampul ONE (19:00)
[2017-11-22] MEDS: KCL 20 mEq/D5W/NaCl 0.45% Inj 1,000 ML IV.CONT SCH (19:00)
[2017-11-22] MEDS ORDERED: KCL 20 mEq/D5W/NaCl 0.9% Inj 1,000 ML ONE (19:01)
[2017-11-22] MEDS ORDERED: *Meperidine Inj 25 MG/ML Vial PERIprocedural Use ONLY ONE (19:04)
--- NOTE | 2017-11-22 19:43 | MH ---
cc: Enoch Martinez MD DATE OF ADMISSION: 11/22/2017 ADMITTING DIAGNOSES: Pelvic pain, right adnexal mass. HISTORY OF PRESENT ILLNESS: A 31-year-old, white female, para 2-0-1-2, who awoke at 1 a.m. today with acute right lower quadrant pain. She went to the ED at [facility]. Initial CT scan showed a 4 cm mass in the right adnexa. This was repeated and showed a 5 cm mass and the ultrasound showed an 8 cm mass with severe pain. She had nausea and vomiting x2. No diarrhea, no fever, no urinary tract symptoms. She was admitted for observation there and transferred to [place] for surgical evaluation. PAST SURGICAL HISTORY: She had a in 2014 and 2016. She had breast augmentation in 06/2017. MEDICATIONS: Vitamins. ALLERGIES: NONE. TRANSFUSIONS: None. SOCIAL HISTORY: She is , employed. Alcohol: Occasional. Tobacco: None. Drugs: None. FAMILY HISTORY: Noncontributory. PHYSICAL EXAMINATION: GENERAL: This is an ill-appearing white female. VITAL SIGNS: Stable. HEENT: Normal. CHEST: Clear. HEART: Regular rate. BREASTS: Implants. ABDOMEN: Tender in the right lower quadrant. PELVIC: Reveals a fullness in the right adnexa, tender. EXTREMITIES: Normal. ASSESSMENT: As above. PLAN: She is now admitted for a laparoscopy, possible laparotomy, possible right oophorectomy. The patient understands and wishes to proceed. MD PARIS Hsu/laura , 06:46 PM , 06:52 PM
[2017-11-22] MEDS ORDERED: *HYDROmorphone PF Inj 1 MG/ML Ampul PERIprocedural Use ONLY ONE (20:05)
[2017-11-22] MEDS ORDERED: Zolpidem Tartrate 5 MG Tablet PO PRN (21:00)
--- NOTE | 2017-11-22 21:07 | MP ---
cc: Enoch Martinez MD DATE OF OPERATION: 11/22/2017 PREOPERATIVE DIAGNOSES: 1. Pelvic pain. 2. Right adnexal mass. POSTOPERATIVE DIAGNOSIS: Ruptured hemorrhagic cyst, right ovary. PROCEDURE PERFORMED: Laparoscopy and evacuation of blood and hemostatic control of the right ovary. ANESTHESIA: General ET. SURGEON: Enoch Martinez MD BEND UP: Tamar Connell. ESTIMATED BLOOD LOSS: Less than 10 mL, but there was evacuated 800 mL of old blood. FLUIDS: 1 liter OBJECTIVE FINDINGS: Following induction of adequate general endotracheal anesthesia, the patient was prepped and draped supine on the operating table in dorsal lithotomy position in sterile fashion with the bladder being drained via in and out catheterization. The abdomen was injected with 2 mL of Marcaine 0.25% with epinephrine in the umbilicus. A 5 mm incision was made. A 5 port placed. Laparoscope inserted. A second 5 in the left lower quadrant and a 12 in the right lower quadrant. Pelvic contents showed copious free blood in the pelvis with clots. This was evacuated out and this revealed that the right ovary had ruptured cyst and blown out the medial sidewall of the ovary. This was thoroughly evacuated and had no further bleeding. The appendix was normal. Liver edge was normal. Uterus shows small fibroid. The cyst cavity was packed with Surgicel powder and observed low pressure test without bleeding. The large port was now removed and the fascia sutured with 2-0 Vicryl and the skin with running subcuticular 3-0 Monocryl after injection of 5 mL of Marcaine 0.25% plus epinephrine. The operative site was inspected again. There was no bleeding. The scope was now removed. The gas was allowed to escape and the small ports were reinjected with Marcaine 0.25% with epinephrine and sutured with 3-0 Monocryl. Dermabond applied. All counts were correct. Jacob catheter discontinued. The patient's legs were taken out of the stirrups. She was awakened and taken to recovery room in good condition. Enoch Martinez MD JAW/sv , 06:49 PM , 06:56 PM
[2017-11-22] MEDS ORDERED: HYDROmorphone PF Inj 2 MG/ML Vial IV.PUSH PRN (21:41)
[2017-11-23] MEDS: KCL 20 mEq/D5W/NaCl 0.45% Inj 1,000 ML IV.CONT SCH ×3 (01:18→10:24)
[2017-11-23] MEDS: Piperacil/Tazo 3.375 GM Premix 50 ML IV.SIG SCH ×3 (05:50→10:30)
[2017-11-23 05:55] LABS: Baso % (Auto) 0.1 % (0.0-2.0); Hematocrit 29.1 % (35.0-46.0); Hemoglobin 10.2 gm/dL (11.6-15.3); Lymph # (Auto) 0.7 th/mm3 (1.0-4.8); Lymph % (Auto) 9.5 % (9.0-44.0); Mean Corpuscular HGB Conc 34.9 % (32.0-36.0); Mean Corpuscular Hemoglobin 33.7 pg (27.0-34.0); Mean Corpuscular Volume 96.5 fL (80.0-100.0); Mean Platelet Volume 10.7 fL (7.0-11.0); Mono # (Auto) 0.4 th/mm3 (0.0-0.9); Mono % (Auto) 5.3 % (0.0-8.0); Neut % (Auto) 85.1 % (16.0-70.0); Platelet Count 106 th/mm3 (150-450); Red Blood Count 3.02 mil/mm3 (4.00-5.30); Red Cell Distribution Width 12.7 % (11.6-17.2)
[2017-11-23 06:25] LABS: Calcium 7.6 mg/dL (8.5-10.1); Carbon Dioxide 23.8 meq/L (21.0-32.0); Potassium 4.3 meq/L (3.5-5.1)
[2017-11-23 09:35] VITALS: RESP 18
[2017-11-23 12:09] VITALS: BP 118/71; PULSE 85; TEMP 98.5; O2SAT 99
== END 2017-11-23 13:17 | disposition home or self-care (01) ==
LOC: PHEDA 01:12 → PHED 01:12 → H1EA 01:12 → PHEDA 07:45 → PH3 08:06 → HSDI 16:20 → H1EA 11-23 00:25
PROVIDERS: ADMIT Obstetrics & Gynecology; ATTEND Obstetrics & Gynecology